=== PATIENT | male | born 1990 | race Caucasian/White ===

== ENCOUNTER 2024-12-19 14:08 | Emergency (ER) | payer MEDICARE, OTHER ==
[~2024-12-19] VITALS: Ht 177.8 cm; Wt 99.8 kg
[2024-12-19 14:22] VITALS: BP 145/85; TEMP 97.9; O2SAT 99
== END 2024-12-19 14:55 | disposition left against medical advice (07) ==
LOC: ER 14:08
DX: Z53.21 Procedure and treatment not carried out due to patient leaving prior to being seen by health care provider (principal)